=== PATIENT | male | born 1975 | race Two or more races ===

== ENCOUNTER 2020-07-07 08:15 | Outpatient (CLI) | payer OTHER | END 2020-07-07 08:20 | disposition home or self-care (01) | LOC: PPH VACUNA 08:15 | DX: Z23 Encounter for immunization (principal) ==

== ENCOUNTER 2020-12-13 11:10 | Emergency (ER) | payer OTHER ==
[~2020-12-13] VITALS: Ht 177.8 cm; Wt 77.1 kg
[2020-12-13] MEDS ORDERED: COZAAR100 MG (11:23)
[2020-12-13] MEDS ORDERED: ALDACTONE25 MG (11:23)
[2020-12-13] MEDS ORDERED: K-TAB ER8 MEQ PO (11:24)
[2020-12-13] MEDS ORDERED: DICLOFENAC POTA50 MG PO (12:40)
[2020-12-13] MEDS ORDERED: ORPHENADRINE C100 MG PO (12:40)
== END 2020-12-13 12:48 | disposition home or self-care (01) ==
LOC: ER 11:10
DX: M75.32 Calcific tendinitis of left shoulder (principal); M75.52 Bursitis of left shoulder; M54.59 Other low back pain; M25.512 Pain in left shoulder

== ENCOUNTER 2021-02-14 08:00 | Outpatient (CLI) | payer OTHER ==
[~2021-02-14 08:00] MED LIST: ALDACTONE25 MG; COZAAR100 MG; DICLOFENAC POTA50 MG PO; K-TAB ER8 MEQ PO; ORPHENADRINE C100 MG PO
== END 2021-02-14 08:30 | disposition home or self-care (01) ==
LOC: PPH VACUNA 08:00
PROVIDERS: ATTEND Emergency Medicine Pediatric Emergency Medicine
DX: Z23 Encounter for immunization (principal)

== ENCOUNTER 2021-09-02 12:23 | Inpatient (IN) | payer OTHER ==
[~2021-09-02] VITALS: Ht 177.8 cm; Wt 77.1 kg
--- NOTE | 2021-09-02 12:31 | NUR ---
SE RECIBE PACIENTE ALERTA, ORIENTADO X 3 ESFERAS REFIERE TENER DOLOR ABDOMINAL LADO MARCO A DESDE MARLEN, PRESENTAR VOMITOS, SE ESTIMAN S/V SE UBICA EN AREA DE OBSERVACION.
--- NOTE | 2021-09-02 13:08 | NUR ---
PTE EVALUADO POR EL DR MOORE QUIEN ORDENA EL [place]. MS C TORRE ORIENTA SOBRE EL TX ORDENADO, LO CUAL REFIERE ENTENDER Y REALIZA PRUEBAS DE LABORATORIO. SE ADMINISTRAN MEDICAMENTOS DARRELL ORDEN MEDICA Y SIGUIENDO MEDIDAS ASEPTICAS.
== END 2021-09-06 19:37 | disposition home or self-care (01) | DRG 446 ==
LOC: ER 12:23 → MEDI 09-03 02:56
PROVIDERS: ADMIT Internal Medicine; ATTEND Internal Medicine
PROC: 4A12X4Z Monitoring of Cardiac Electrical Activity, External Approach (ICD-10-PCS; principal; 2021-09-03)
DX: K80.00 Calculus of gallbladder with acute cholecystitis without obstruction (principal); E87.6 Hypokalemia; K70.31 Alcoholic cirrhosis of liver with ascites; F10.20 Alcohol dependence, uncomplicated; I10 Essential (primary) hypertension; Z72.0 Tobacco use; Z20.822 Contact with and (suspected) exposure to COVID-19

== ENCOUNTER 2023-09-10 05:45 | Emergency (ER) | payer OTHER ==
[~2023-09-10] VITALS: Ht 177.8 cm; Wt 69.4 kg
[~2023-09-10 05:45] MED LIST changes: +CIPRO500 MG PO; +LEVSIN/SL0.125 MG SL; +PEPCID40 MG PO; +POTASSIUM99 M3 PO
[2023-09-10] MEDS ORDERED: LOSARTAN POTAS100 MG (05:54)
[2023-09-10] MEDS ORDERED: RINGERS SOLUTION,LACTATED 1,000 ML IV STA (06:13)
[2023-09-10] MEDS ORDERED: HYOSCYAMINE SULFATE 0.125 MG TAB.SUBL SL STA (06:15)
[2023-09-10] MEDS ORDERED: THIAMINE HCL 100 MG/ML 2 ML VIAL IM STA (06:16)
[2023-09-10] MEDS ORDERED: PROMETHAZINE HCL 50 MG/ML AMPUL IM STA (06:16)
[2023-09-10] MEDS ORDERED: FAMOtidine 10 MG/ML (4ML VIAL) IV PUSH STA (06:17)
[2023-09-10] MEDS ORDERED: ONDANSETRON HCL 2 MG/ML VIAL IV STA (06:17)
[2023-09-10] MEDS ORDERED: LABETALOL HCL 100 MG/20 ML ML IV PUSH STA (06:18)
[2023-09-10 06:41] LABS: HEMATOCRIT 42.6 % (39.0-48.0); HEMOGLOBIN 14.8 g/dL (13-16.00); MEAN CELL VOLUME 100.2 fL (80.0-100.00); MEAN CORPUSCULAR HEMOGLOBIN 34.8 pg (27.00-32.0); MEAN CORPUSCULAR HGB CONC 34.7 g/dl (32.0-36.0); PLATELET COUNT 312 K/uL (150-450); RED BLOOD COUNT 4.25 M/uL (4.00-6.00); RED CELL DISTRIBUTION WIDTH 13.9 % (11.5-14.5)
[2023-09-10 06:52] LABS: PH,URINE 6.5 (5.0-8.0); URINE APPEARANCE Clear; URINE BILIRRUBIN Negative (NEGATIVE); URINE BLOOD Negative; URINE COLOR Dark Yellow; URINE GLUCOSE Negative (NEGATIVE); URINE LEUKOCYTE Negative; URINE NITRATE Negative; URINE RBC 3.2 uL (0.0-20.8); URINE WBC 5.8 uL (0.0-23.2)
[2023-09-10 07:08] LABS: URINE PROTEIN 100 (NEGATIVE)
[2023-09-10 07:21] LABS: ALBUMIN 3.8 gm/dL (3.4-5.0); BILIRUBIN TOTAL 0.82 mg/dL (0.3-1.2); CALCIUM 9.7 mg/dL (8.5-10.1); CREATININE SERUM 0.84 mg/dL (0.70-1.30); GFR 97.12; GLOBULINA 3.8 G/DL (2.4-3.5); POTASSIUM 3.3 mEq/L (3.5-5.1); TOTAL PROTEIN 7.6 gm/dL (6.4-8.2)
== END 2023-09-10 14:49 | disposition home or self-care (01) ==
LOC: ER 05:46
DX: R10.11 Right upper quadrant pain (principal); K80.20 Calculus of gallbladder without cholecystitis without obstruction; K76.0 Fatty (change of) liver, not elsewhere classified; I10 Essential (primary) hypertension; F10.21 Alcohol dependence, in remission; Z20.822 Contact with and (suspected) exposure to COVID-19

== ENCOUNTER 2024-08-05 08:33 | Emergency (ER) | payer OTHER ==
[~2024-08-05] VITALS: Ht 177.8 cm; Wt 70.3 kg
[~2024-08-05 08:33] MED LIST changes: +LOSARTAN POTAS100 MG
[2024-08-05] MEDS ORDERED: THIAMINE HCL 100 MG/ML 2 ML VIAL IM STA (09:15)
[2024-08-05] MEDS ORDERED: 0.9 % SODIUM CHLORIDE 1,000 ML IV STA (09:15)
[2024-08-05] MEDS ORDERED: PROMETHAZINE HCL 50 MG/ML AMPUL IM STA (09:16)
[2024-08-05] MEDS ORDERED: FAMOtidine 10 MG/ML (4ML VIAL) IV PUSH STA (09:17)
[2024-08-05] MEDS ORDERED: KETOROLAC TROMETHAMINE 30 MG VIAL IV STA (09:18)
[2024-08-05] MEDS ORDERED: KETOROLAC TROMETHAMINE 30 MG VIAL ONE (09:31)
[2024-08-05] MEDS ORDERED: THIAMINE HCL 100 MG/ML 2 ML VIAL ONE (09:31)
[2024-08-05] MEDS ORDERED: FAMOTIDINE/PF 20 MG/2 ML VIAL ONE (09:32)
[2024-08-05] MEDS ORDERED: PROMETHAZINE HCL 50 MG/ML AMPUL IM ONE (09:32)
[2024-08-05 09:43] LABS: BASO % 0.7 % (0.1-1.2); HEMATOCRIT 41.4 % (40.1-51.0); HEMOGLOBIN 14.3 g/dL (13.7-17.5); LYMPH # 1.22 (1.18-3.74); LYMPH % 20.3 % (19.3-53.1); MEAN CORPUSCULAR HEMOGLOBIN 33.1 pg (25.6-32.2); MONO # 0.68 (0.24-0.82); MONO % 11.3 % (4.7-12.5); NEUT # 4.04 (1.56-6.13); NEUT % 67.4 % (34.0-71.1); PLATELET COUNT 141 K/uL (163-369); RED BLOOD COUNT 4.32 M/uL (4.63-6.08); RED CELL DISTRIBUTION WIDTH 12.5 % (11.6-14.4)
[2024-08-05 10:03] LABS: INR 1.02; PARTIAL THROMBOPLASTIN TIME 27.2 SECONDS (22.0-34.0); PROTHROMBIN TIME 11.1 SECONDS (9.0-11.5)
[2024-08-05 10:56] LABS: COVID-19 AG NEGATIVE (NEGATIVE)
[2024-08-05 10:57] LABS: INFLUENZA A AG NEGATIVE (NEGATIVE); INFLUENZA B AG NEGATIVE (NEGATIVE)
[2024-08-05 12:15] LABS: ALBUMIN 3.8 gm/dL (3.4-5.0); BILIRUBIN TOTAL 1.33 mg/dL (0.3-1.2); CALCIUM 9.7 mg/dL (8.5-10.1); CREATININE SERUM 0.97 mg/dL (0.70-1.30); GFR 81.92; GLOBULINA 3.4 G/DL (2.4-3.5); TOTAL PROTEIN 7.2 gm/dL (6.4-8.2)
[2024-08-05] MEDS ORDERED: KETOROLAC TROMETHAMINE 60 MG VIAL IM ONE (14:55)
[2024-08-05] MEDS ORDERED: ACETAMINOPHEN 500 MG GEL..CAP PO ONE (14:55)
== END 2024-08-05 15:50 | disposition home or self-care (01) ==
LOC: ER 08:36
DX: K29.70 Gastritis, unspecified, without bleeding (principal); R11.10 Vomiting, unspecified; F10.20 Alcohol dependence, uncomplicated; R10.9 Unspecified abdominal pain; Z20.822 Contact with and (suspected) exposure to COVID-19; I10 Essential (primary) hypertension

== ENCOUNTER 2024-09-15 14:17 | Inpatient (IN) | payer OTHER ==
[~2024-09-15] VITALS: Ht 152.4 cm; Wt 75.7 kg
--- NOTE | 2024-09-15 14:28 | NUR ---
PACIENTE MASCULINO, S.V EN PARAMETROS, SE UBICA EN OBSERVACION ESPERA SER EVALUADO POR MD
[2024-09-15] MEDS ORDERED: ONDANSETRON HCL 2 MG/ML VIAL IV ONE ×2 (14:45→22:00)
[2024-09-15] MEDS ORDERED: BENZONATATE 200 MG CAPSULE PO ONE (14:45)
[2024-09-15] MEDS ORDERED: FAMOtidine 10 MG/ML (4ML VIAL) IV ONE (14:45)
[2024-09-15] MEDS ORDERED: 0.9 % SODIUM CHLORIDE 1,000 ML IV ONE (15:15)
--- NOTE | 2024-09-15 15:16 | NUR ---
SE ORIENTA A PACIENTE SOBRE ORDEN MEDICA EL MISMO REFIRE ENTENDER Y ACEPTA.
[2024-09-15 15:21] LABS: BASO % 0.5 % (0.1-1.2); EOS # 0.02 (0.04-0.54); EOS % 0.3 % (0.7-7.0); LYMPH # 1.44 (1.18-3.74); LYMPH % 19.1 % (19.3-53.1); MEAN PLATELET VOLUME 11.00 fl (9.4-12.4); MONO # 0.94 (0.24-0.82); NEUT # 5.05 (1.56-6.13); NEUT % 67.2 % (34.0-71.1); RED CELL DISTRIBUTION WIDTH 15.3 % (11.6-14.4)
[2024-09-15 15:23] LABS: URINE APPEARANCE Clear; URINE BILIRRUBIN Moderate (NEGATIVE); URINE BLOOD Negative; URINE COLOR Orange; URINE GLUCOSE Negative (NEGATIVE); URINE KETONE Negative (NEGATIVE); URINE LEUKOCYTE Small; URINE NITRATE Positive; URINE UROBILINOGEN 1.0 E.U./dl
[2024-09-15 15:26] LABS: URINE BACTERIA 31.1 uL (0.0-1933); URINE CAST 1.75 uL (0.0-1.40); URINE EPITHELIAL CELLS 13.6 uL (0.0-38.8); URINE RBC 17.4 uL (0.0-20.8); URINE WBC 2.3 uL (0.0-23.2)
[2024-09-15 15:27] LABS: MONO % 12.5 % (4.7-12.5)
[2024-09-15] MEDS ORDERED: PIPERACILLIN/TAZOBACTAM SODIUM 3.375 GM VIAL IV ONE (15:30)
[2024-09-15 15:40] LABS: INR 1.13
[2024-09-15 15:42] LABS: COVID-19 AG NEGATIVE (NEGATIVE)
[2024-09-15 15:54] LABS: ALT/SGPT 30.0 U/L (12-78); AST/SGOT 83.0 U/L (15-37); BILIRUBIN TOTAL 2.58 mg/dL (0.3-1.2); BUN CREA RATIO 15.0 (7.0-25.0); CREATININE SERUM 0.82 mg/dL (0.70-1.30); GFR 99.45; GLOBULINA 3.0 G/DL (2.4-3.5); GLUCOSE FASTING 89.0 mg/dL (65-100); OSMOLALITY SERUM 256.0 MOSM/KG (275-295)
[2024-09-15 15:59] LABS: URINE PROTEIN 300 (NEGATIVE)
[2024-09-15 16:25] LABS: ABG PH 7.451 (7.35-7.45); BICARBONATE 20.4 mmol/l (23-25)
[2024-09-15 18:21] LABS: o2 21 %
[2024-09-15 18:29] LABS: ABG PO2 59.8 mmHg (80-100)
[2024-09-15] MEDS ORDERED: AMIODARONE HCL 50 MG/ML AMPUL IV ONE (20:00)
--- NOTE | 2024-09-15 20:03 | NUR ---
SE RECIBE PTE EN AREA DE CRITICO #2 ALERTA Y ORIENTADO X3, SE CONECTA A MONITOR CARDIACO Y OXIMETRIA DE PULSO CONTINUA. PTE AL MOMENTO CON PULSO EN 135-160 LAT MIN. SE CONSULTA CON QUIEN INDICA COLOCAR CELY DE AMIODARONE 150MG/100MG BAJANDO EN 10MIN, Y LUEGO COLOCAR DRIP DE AMIODARONE @ 33ML/HR. SE EJECUTA ORDEN A CALVILLO TOTALIDAD.
[2024-09-15] MEDS ORDERED: FAMOTIDINE/PF 20 MG in 0.9 % SODIUM CHLORIDE 8 ML IV PUSH SCH (20:04)
[2024-09-15] MEDS ORDERED: IPRATROPIUM BROMIDE 0.5 MG/2.5 ML AMPUL.NEB IH SCH (20:08)
[2024-09-15] MEDS ORDERED: CEFTRIAXONE SODIUM 2,000 MG in 0.9 % SODIUM CHLORIDE 100 ML IV SCH (20:10)
[2024-09-15] MEDS ORDERED: POTASSIUM CHLORIDE 20MEQ/100ML H2O PB IV ONE (20:15)
[2024-09-15] MEDS ORDERED: ACETAMINOPHEN 500 MG GEL..CAP PO PRN ×2 (20:15)
[2024-09-15 21:00] VITALS: BP 126/63; O2SAT 96
[2024-09-15] MEDS ORDERED: ENOXAPARIN SODIUM 60 MG/0.6 ML SYRINGE SUBCUTANEO SCH (21:00)
[2024-09-15 22:00] VITALS: BP 109/83; O2SAT 95
[2024-09-15] MEDS ORDERED: THIAMINE HCL 100 MG/ML 2 ML VIAL IV SCH (22:05)
[2024-09-15] MEDS ORDERED: CHLORDIAZEPOXIDE HCL 25 MG CAPSULE PO SCH (22:05)
[2024-09-15] MEDS ORDERED: METOPROLOL TARTRATE 25 MG TABLET PO ONE (22:15)
[2024-09-15] MEDS ORDERED: NICOTINE 21MG/24HR PATCH.TD24 TD ONE (22:15)
[2024-09-15 23:00] VITALS: BP 92/76; O2SAT 95
[2024-09-16] VITALS (20 sets, daily range): BP systolic 85–125; BP diastolic 51–90; O2SAT 84–100
[2024-09-16 06:34] LABS: CHOL HDL RATIO 2.4 (0-5.0); HDL 121.0 mg/dl (40-60); LDL 144.0 mg/dl (0-130); VLDL 20.0 (0-39)
[2024-09-16 06:44] LABS: TSH 1.1 uIU/mL (0.358-3.74)
[2024-09-16] MEDS ORDERED: AMIODARONE HCL 450 MG in DEXTROSE 5 % IN WATER 250 ML IV SCH ×2 (07:15→13:30)
[2024-09-16] MEDS ORDERED: CARVEDILOL 6.25 MG TABLET PO SCH (10:27)
[2024-09-16] MEDS ORDERED: MAGNESIUM SULFATE IN WATER 50 ML IV ONE (11:00)
[2024-09-16] MEDS ORDERED: METOPROLOL TARTRATE 5MG/5ML AMPUL IV STA (11:29)
[2024-09-16] MEDS ORDERED: POTASSIUM CHLORIDE 10 MEQ CAPSULE PO SCH (12:00)
[2024-09-16] MEDS ORDERED: 0.9 % SODIUM CHLORIDE 500 ML IV ONE (20:15)
[2024-09-16] MEDS ORDERED: METOPROLOL SUCCINATE 50 MG TAB.SR.24H PO SCH (21:00)
[2024-09-16] MEDS ORDERED: NOREPINEPHRINE BITARTRATE 1 MG/ML AMPUL IV SCH (21:00)
[2024-09-16] MEDS ORDERED: 0.9 % SODIUM CHLORIDE 1,000 ML IV SCH (21:00)
[2024-09-16 23:49] LABS: ABG PH 7.296 (7.35-7.45); ABG PO2 253.6 mmHg (80-100); BICARBONATE 11.6 mmol/l (23-25)
[2024-09-16 23:50] LABS: o2 50 %
[2024-09-17] VITALS (22 sets, daily range): BP systolic 84–140; BP diastolic 57–103; O2SAT 82–100
[2024-09-17] MEDS ORDERED: NOREPINEPHRINE BITARTRATE 4 MG in DEXTROSE 5 % IN WATER 250 ML IV SCH (08:15)
[2024-09-17] MEDS ORDERED: NICOTINE 21MG/24HR PATCH.TD24 TD SCH (09:00)
[2024-09-17] MEDS ORDERED: LORazepam 2 MG/ML VIAL IV PUSH SCH (09:00)
[2024-09-17 09:32] LABS: BASO % 0.2 % (0.1-1.2); EOS # 0.00 (0.04-0.54); EOS % 0.0 % (0.7-7.0); LYMPH # 0.48 (1.18-3.74); LYMPH % 3.6 % (19.3-53.1); MEAN PLATELET VOLUME 11.70 fl (9.4-12.4); MONO # 1.49 (0.24-0.82); MONO % 11.2 % (4.7-12.5); NEUT # 11.23 (1.56-6.13); NEUT % 84.4 % (34.0-71.1); RED CELL DISTRIBUTION WIDTH 15.8 % (11.6-14.4)
[2024-09-17 09:42] LABS: ABG PH 7.322 (7.35-7.45); ABG PO2 130.8 mmHg (80-100); BICARBONATE 14.3 mmol/l (23-25)
[2024-09-17 10:27] LABS: ALT/SGPT 311.0 U/L (12-78); BILIRUBIN TOTAL 6.58 mg/dL (0.3-1.2); BUN CREA RATIO 11.0 (7.0-25.0); CREATININE SERUM 2.12 mg/dL (0.70-1.30); GFR 33.23; GLOBULINA 2.8 G/DL (2.4-3.5); GLUCOSE FASTING 102.0 mg/dL (65-100); OSMOLALITY SERUM 261.0 MOSM/KG (275-295)
[2024-09-17 10:29] LABS: AST/SGOT 1493.0 U/L (15-37)
[2024-09-17] MEDS ORDERED: MAGNESIUM SULFATE IN WATER 50 ML IV NR (15:00)
[2024-09-17 15:16] LABS: o2 50 %
[2024-09-17 19:43] LABS: MONONUCLEAR 78.7 %; POLYMORPHONUCLEAR 21.3 %
[2024-09-17 19:44] LABS: GLU PLEURAL FLUID 100.0 mg/dl; LDH PLEURAL FLUID 76.0 U/L; TP PLEURAL FLUID 1.4 g/dl
[2024-09-18] VITALS (21 sets, daily range): BP systolic 91–120; BP diastolic 66–103; O2SAT 89–100
[2024-09-18 07:17] LABS: BUN CREA RATIO 12.0 (7.0-25.0); CREATININE SERUM 2.94 mg/dL (0.70-1.30); GFR 22.79; GLUCOSE FASTING 73.0 mg/dL (65-100); OSMOLALITY SERUM 266.0 MOSM/KG (275-295)
[2024-09-18] MEDS ORDERED: LORazepam 2 MG/ML VIAL IV PUSH SCH (09:00)
[2024-09-18 10:41] LABS: ABG PH 7.242 (7.35-7.45); BICARBONATE 21.6 mmol/l (23-25)
[2024-09-18 10:55] LABS: ABG PO2 21.1 mmHg (80-100)
[2024-09-18 10:56] LABS: o2 35 %
[2024-09-18 12:16] LABS: ABG PO2 109.8 mmHg (80-100); BICARBONATE 18.8 mmol/l (23-25)
[2024-09-18 12:33] LABS: ABG PH 7.195 (7.35-7.45); o2 50 %
[2024-09-18] MEDS ORDERED: SODIUM BICARBONATE 150 MEQ in DEXTROSE 5 % IN WATER 1,000 ML IV SCH (13:15)
[2024-09-19] VITALS (21 sets, daily range): BP systolic 81–113; BP diastolic 65–89; O2SAT 89–100
[2024-09-19] MEDS ORDERED: ENOXAPARIN SODIUM 60 MG/0.6 ML SYRINGE SUBCUTANEO SCH (09:00)
[2024-09-19 09:21] LABS: BASO % 0.1 % (0.1-1.2); EOS # 0.01 (0.04-0.54); EOS % 0.1 % (0.7-7.0); LYMPH # 0.92 (1.18-3.74); LYMPH % 9.3 % (19.3-53.1); MEAN PLATELET VOLUME 10.60 fl (9.4-12.4); MONO # 1.42 (0.24-0.82); NEUT # 7.54 (1.56-6.13); NEUT % 75.8 % (34.0-71.1); RED CELL DISTRIBUTION WIDTH 16.2 % (11.6-14.4)
[2024-09-19 09:27] LABS: MONO % 14.3 % (4.7-12.5)
[2024-09-19 09:45] LABS: ABG PH 7.452 (7.35-7.45); ABG PO2 110.3 mmHg (80-100); BICARBONATE 22.7 mmol/l (23-25)
[2024-09-19 10:30] LABS: BUN CREA RATIO 18.0 (7.0-25.0); CREATININE SERUM 2.44 mg/dL (0.70-1.30); GFR 28.25; GLUCOSE FASTING 100.0 mg/dL (65-100); OSMOLALITY SERUM 274.0 MOSM/KG (275-295)
[2024-09-19 12:29] LABS: o2 50 %
[2024-09-19] MEDS ORDERED: PIPERACILLIN/TAZOBACTAM SODIUM 2.25 GM VIAL IV STA (16:13)
[2024-09-20] VITALS (19 sets, daily range): BP systolic 81–113; BP diastolic 65–92; O2SAT 88–99
[2024-09-20] MEDS ORDERED: PIPERACILLIN/TAZOBACTAM SODIUM 2.25 GM VIAL IV SCH
[2024-09-20 12:53] LABS: BUN CREA RATIO 24.0 (7.0-25.0); CREATININE SERUM 2.05 mg/dL (0.70-1.30); GFR 34.54; GLUCOSE FASTING 98.0 mg/dL (65-100); OSMOLALITY SERUM 283.0 MOSM/KG (275-295)
[2024-09-20] MEDS ORDERED: AMIODARONE HCL 450 MG in DEXTROSE 5 % IN WATER 250 ML IV SCH (14:15)
[2024-09-21] VITALS (17 sets, daily range): BP systolic 89–116; BP diastolic 73–93; O2SAT 94–100
[2024-09-21 06:41] LABS: BASO % 0.1 % (0.1-1.2); EOS # 0.02 (0.04-0.54); EOS % 0.2 % (0.7-7.0); LYMPH # 0.80 (1.18-3.74); LYMPH % 6.5 % (19.3-53.1); MEAN PLATELET VOLUME 10.40 fl (9.4-12.4); MONO # 2.41 (0.24-0.82); NEUT # 8.99 (1.56-6.13); NEUT % 73.1 % (34.0-71.1); RED CELL DISTRIBUTION WIDTH 17.5 % (11.6-14.4)
[2024-09-21 06:44] LABS: MONO % 19.6 % (4.7-12.5)
[2024-09-21 07:09] LABS: BUN CREA RATIO 27.0 (7.0-25.0); CREATININE SERUM 2.06 mg/dL (0.70-1.30); GFR 34.35; GLUCOSE FASTING 96.0 mg/dL (65-100); OSMOLALITY SERUM 283.0 MOSM/KG (275-295)
[2024-09-21] MEDS ORDERED: FLUCONAZOLE IN NACL,ISO-OSM 200 MG/100 ML PIGGYBAG IV SCH (09:00)
[2024-09-21] MEDS ORDERED: AMIODARONE HCL 200 MG TABLET PO NR (11:00)
[2024-09-21] MEDS ORDERED: AMIODARONE HCL 200 MG TABLET PO SCH (17:00)
[2024-09-21] MEDS ORDERED: LORazepam 2 MG/ML VIAL IV PUSH SCH (17:00)
[2024-09-21] MEDS ORDERED: NOREPINEPHRINE BITARTRATE 1 MG/ML AMPUL IV ONE (21:12)
[2024-09-21] MEDS ORDERED: NOREPINEPHRINE BITARTRATE 1 MG/ML AMPUL IV SCH (23:00)
[2024-09-22] VITALS (24 sets, daily range): BP systolic 75–119; BP diastolic 62–104; O2SAT 81–100
[2024-09-22] MEDS ORDERED: PIPERACILLIN/TAZOBACTAM SODIUM 3.375 GM VIAL IV SCH (01:00)
[2024-09-22 06:50] LABS: ABG PH 7.133 (7.35-7.45)
[2024-09-22 06:51] LABS: ABG PO2 78.7 mmHg (80-100); BICARBONATE 25.4 mmol/l (23-25)
[2024-09-22 06:52] LABS: o2 100 %
[2024-09-22] MEDS ORDERED: NOREPINEPHRINE BITARTRATE 8 MG in DEXTROSE 5 % IN WATER 250 ML IV SCH (08:00)
[2024-09-22] MEDS ORDERED: AMIODARONE HCL 900 MG in DEXTROSE 5 % IN WATER 500 ML IV SCH (08:00)
[2024-09-22] MEDS ORDERED: FLUCONAZOLE IN NACL,ISO-OSM 2 MG/ML ML IV SCH (09:00)
[2024-09-22 10:57] LABS: ABG PH 7.378 (7.35-7.45); ABG PO2 170.7 mmHg (80-100); BICARBONATE 21.8 mmol/l (23-25)
[2024-09-22 11:25] LABS: o2 100 %
[2024-09-22] MEDS ORDERED: CEFEPIME HCL 2,000 MG in 0.9 % SODIUM CHLORIDE 100 ML IV SCH (21:00)
[2024-09-23] VITALS (20 sets, daily range): BP systolic 87–143; BP diastolic 72–90; O2SAT 25–100
[2024-09-23] MEDS ORDERED: METRONIDAZOLE/SODIUM CHLORIDE 500 MG/100 ML PIGGYBACK IV SCH (01:00)
[2024-09-23 07:51] LABS: BASO % 0.2 % (0.1-1.2); EOS # 0.03 (0.04-0.54); EOS % 0.2 % (0.7-7.0); LYMPH # 1.22 (1.18-3.74); LYMPH % 9.7 % (19.3-53.1); MEAN PLATELET VOLUME 10.00 fl (9.4-12.4); MONO # 2.32 (0.24-0.82); NEUT # 8.85 (1.56-6.13); NEUT % 70.5 % (34.0-71.1); RED CELL DISTRIBUTION WIDTH 17.5 % (11.6-14.4)
[2024-09-23 08:13] LABS: MONO % 18.5 % (4.7-12.5)
[2024-09-23 08:29] LABS: ALT/SGPT 117.0 U/L (12-78); AST/SGOT 149.0 U/L (15-37); BILIRUBIN TOTAL 3.35 mg/dL (0.3-1.2); BUN CREA RATIO 30.0 (7.0-25.0); CREATININE SERUM 2.71 mg/dL (0.70-1.30); GFR 25.03; GLOBULINA 2.8 G/DL (2.4-3.5); GLUCOSE FASTING 106.0 mg/dL (65-100); OSMOLALITY SERUM 293.0 MOSM/KG (275-295)
[2024-09-23 10:38] LABS: ABG PH 7.435 (7.35-7.45)
[2024-09-23 10:39] LABS: ABG PO2 60.8 mmHg (80-100)
[2024-09-23 10:40] LABS: BICARBONATE 22.4 mmol/l (23-25)
[2024-09-23 10:42] LABS: o2 50 %
[2024-09-23 10:54] LABS: ABG PH 7.455 (7.35-7.45); ABG PO2 165.2 mmHg (80-100); BICARBONATE 22.1 mmol/l (23-25)
[2024-09-23 10:55] LABS: o2 80 %
[2024-09-24] VITALS (23 sets, daily range): BP systolic 96–107; BP diastolic 79–89; O2SAT 93–100
[2024-09-25] VITALS (19 sets, daily range): BP systolic 87–102; BP diastolic 54–88; O2SAT 86–100
[2024-09-25 08:02] LABS: ALT/SGPT 74.0 U/L (12-78); AST/SGOT 81.0 U/L (15-37); BILIRUBIN TOTAL 3.42 mg/dL (0.3-1.2); BUN CREA RATIO 42.0 (7.0-25.0); CREATININE SERUM 1.29 mg/dL (0.70-1.30); GFR 58.95; GLOBULINA 2.8 G/DL (2.4-3.5); GLUCOSE FASTING 86.0 mg/dL (65-100); OSMOLALITY SERUM 286.0 MOSM/KG (275-295)
[2024-09-25 08:05] LABS: BASO % 0.1 % (0.1-1.2); EOS # 0.04 (0.04-0.54); EOS % 0.4 % (0.7-7.0); LYMPH # 0.83 (1.18-3.74); LYMPH % 7.6 % (19.3-53.1); MEAN PLATELET VOLUME 9.90 fl (9.4-12.4); MONO # 1.25 (0.24-0.82); MONO % 11.5 % (4.7-12.5); NEUT # 8.61 (1.56-6.13); NEUT % 79.3 % (34.0-71.1); RED CELL DISTRIBUTION WIDTH 18.1 % (11.6-14.4)
[2024-09-25] MEDS ORDERED: MILRINONE LACTATE IV SCH (13:30)
[2024-09-25] MEDS ORDERED: SODIUM CHLORIDE 0.9% IV SCH (13:30)
[2024-09-26] VITALS (23 sets, daily range): BP systolic 96–108; BP diastolic 63–91; O2SAT 89–98
[2024-09-26] MEDS ORDERED: GUAIFENESIN 200 MG/10 ML BLIST.PACK PO SCH (12:00)
[2024-09-26] MEDS ORDERED: BENZONATATE 200 MG CAPSULE PO SCH (17:00)
[2024-09-26] MEDS ORDERED: IPRATROPIUM BROMIDE 0.5 MG/2.5 ML AMPUL.NEB IH SCH (17:00)
[2024-09-27] VITALS (21 sets, daily range): BP systolic 81–108; BP diastolic 55–90; O2SAT 78–100
[2024-09-27 08:04] LABS: BUN CREA RATIO 33.0 (7.0-25.0); CREATININE SERUM 1.42 mg/dL (0.70-1.30); GFR 52.77; GLUCOSE FASTING 112.0 mg/dL (65-100); OSMOLALITY SERUM 285.0 MOSM/KG (275-295)
[2024-09-27 09:21] LABS: ABG PH 7.318 (7.35-7.45); ABG PO2 58.2 mmHg (80-100); BICARBONATE 26.2 mmol/l (23-25)
[2024-09-27 09:22] LABS: o2 50 %
[2024-09-27] MEDS ORDERED: METHYLPREDNISOLONE SOD SUCC 40 MG VIAL IV SCH (13:46)
[2024-09-27] MEDS ORDERED: NOREPINEPHRINE BITARTRATE 8 MG in DEXTROSE 5 % IN WATER 250 ML IV SCH (15:30)
[2024-09-27 17:02] LABS: ABG PH 7.277 (7.35-7.45); ABG PO2 181.4 mmHg (80-100); BICARBONATE 23.6 mmol/l (23-25)
[2024-09-27 19:01] LABS: o2 100 %
[2024-09-27 19:12] LABS: ABG PH 7.203 (7.35-7.45)
[2024-09-27 19:15] LABS: BICARBONATE 26.4 mmol/l (23-25)
[2024-09-27 19:16] LABS: o2 100 %
[2024-09-27 19:17] LABS: ABG PO2 43.9 mmHg (80-100)
[2024-09-28] VITALS (23 sets, daily range): BP systolic 92–111; BP diastolic 74–98; O2SAT 98–100
[2024-09-28] MEDS ORDERED: METOLAZONE 5 MG TABLET PO ONE (07:00)
[2024-09-28 07:58] LABS: ALT/SGPT 45.0 U/L (12-78); AST/SGOT 56.0 U/L (15-37); BILIRUBIN TOTAL 2.59 mg/dL (0.3-1.2); BUN CREA RATIO 32.0 (7.0-25.0); CREATININE SERUM 1.77 mg/dL (0.70-1.30); GFR 40.92; GLOBULINA 3.1 G/DL (2.4-3.5); GLUCOSE FASTING 134.0 mg/dL (65-100); OSMOLALITY SERUM 290.0 MOSM/KG (275-295)
[2024-09-28 10:19] LABS: ABG PH 7.421 (7.35-7.45); ABG PO2 125.1 mmHg (80-100)
[2024-09-28 10:20] LABS: BICARBONATE 23.7 mmol/l (23-25); o2 50 %
[2024-09-28 13:57] LABS: BASO % 0.2 % (0.1-1.2); EOS # 0.01 (0.04-0.54); EOS % 0.0 % (0.7-7.0); LYMPH # 0.47 (1.18-3.74); LYMPH % 2.2 % (19.3-53.1); MEAN PLATELET VOLUME 10.00 fl (9.4-12.4); MONO # 0.62 (0.24-0.82); MONO % 2.9 % (4.7-12.5); NEUT # 19.90 (1.56-6.13); NEUT % 93.9 % (34.0-71.1); RED CELL DISTRIBUTION WIDTH 17.3 % (11.6-14.4)
[2024-09-28] MEDS ORDERED: FAMOTIDINE/PF 20 MG/2 ML VIAL IV SCH (18:00)
[2024-09-29] VITALS (23 sets, daily range): BP systolic 98–127; BP diastolic 82–101; O2SAT 91–100
[2024-09-29 07:51] LABS: ALT/SGPT 37.0 U/L (12-78); AST/SGOT 45.0 U/L (15-37); BILIRUBIN TOTAL 2.24 mg/dL (0.3-1.2); BUN CREA RATIO 33.0 (7.0-25.0); CREATININE SERUM 1.94 mg/dL (0.70-1.30); GFR 36.81; GLOBULINA 3.1 G/DL (2.4-3.5); GLUCOSE FASTING 112.0 mg/dL (65-100); OSMOLALITY SERUM 295.0 MOSM/KG (275-295)
[2024-09-29 10:17] LABS: ABG PH 7.485 (7.35-7.45); ABG PO2 74.5 mmHg (80-100)
[2024-09-29 10:18] LABS: BICARBONATE 20.9 mmol/l (23-25)
[2024-09-29 10:19] LABS: o2 50 %
[2024-09-30] VITALS (22 sets, daily range): BP systolic 99–120; BP diastolic 80–99; O2SAT 94–100
[2024-09-30] MEDS ORDERED: METHYLPREDNISOLONE SOD SUCC 40 MG VIAL IV SCH (09:00)
[2024-09-30] MEDS ORDERED: AMIODARONE HCL 200 MG TABLET PO SCH (21:53)
[2024-09-30] MEDS ORDERED: METOPROLOL SUCCINATE 25 MG TAB.SR.24H PO SCH (21:54)
[2024-10-01] VITALS (13 sets, daily range): BP systolic 88–113; BP diastolic 77–96; O2SAT 90–100
[2024-10-01 07:11] LABS: BASO % 0.1 % (0.1-1.2); EOS # 0.00 (0.04-0.54); EOS % 0.0 % (0.7-7.0); LYMPH # 0.26 (1.18-3.74); LYMPH % 1.7 % (19.3-53.1); MEAN PLATELET VOLUME 10.00 fl (9.4-12.4); MONO # 1.04 (0.24-0.82); MONO % 6.8 % (4.7-12.5); NEUT # 13.91 (1.56-6.13); NEUT % 90.7 % (34.0-71.1); RED CELL DISTRIBUTION WIDTH 17.2 % (11.6-14.4)
[2024-10-01] MEDS ORDERED: MIDODRINE HCL 5 MG TABLET PO SCH ×2 (09:00)
[2024-10-02] VITALS (9 sets, daily range): BP systolic 90–123; BP diastolic 75–105; O2SAT 84–98
[2024-10-02 06:45] LABS: BASO % 0.1 % (0.1-1.2); EOS # 0.00 (0.04-0.54); EOS % 0.0 % (0.7-7.0); LYMPH # 0.31 (1.18-3.74); LYMPH % 2.3 % (19.3-53.1); MEAN PLATELET VOLUME 10.20 fl (9.4-12.4); MONO # 1.04 (0.24-0.82); MONO % 7.7 % (4.7-12.5); NEUT # 12.08 (1.56-6.13); NEUT % 89.2 % (34.0-71.1); RED CELL DISTRIBUTION WIDTH 16.9 % (11.6-14.4)
[2024-10-02 07:35] LABS: ALT/SGPT 38.0 U/L (12-78); AST/SGOT 59.0 U/L (15-37); BILIRUBIN TOTAL 2.58 mg/dL (0.3-1.2); BUN CREA RATIO 33.0 (7.0-25.0); CREATININE SERUM 2.93 mg/dL (0.70-1.30); GFR 22.88; GLOBULINA 3.4 G/DL (2.4-3.5); GLUCOSE FASTING 114.0 mg/dL (65-100); OSMOLALITY SERUM 300.0 MOSM/KG (275-295)
[2024-10-02] MEDS ORDERED: MIDODRINE HCL 5 MG TABLET PO SCH (09:00)
[2024-10-02 11:37] LABS: ABG PH 7.363 (7.35-7.45); ABG PO2 119.0 mmHg (80-100); BICARBONATE 13.5 mmol/l (23-25)
[2024-10-02 11:58] LABS: o2 30 %
[2024-10-02 13:49] LABS: COVID-19 AG NEGATIVE (NEGATIVE)
[2024-10-02] MEDS ORDERED: CLOTRIMAZOLE 10 MG TROCHE MM SCH (17:09)
== END 2024-10-02 22:00 | disposition expired | DRG 291 ==
LOC: ER 14:17 → ICU 20:34 → ICU-2 20:34 → ICU 09-16 11:13
PROVIDERS: General Practice; Internal Medicine; Internal Medicine Critical Care Medicine; Internal Medicine Infectious Disease; Internal Medicine Nephrology; Radiology Vascular & Interventional Radiology; Student in an Organized Health Care Education/Training Program; ADMIT Internal Medicine; ATTEND Internal Medicine
PROC: BW21ZZZ Computerized Tomography (CT Scan) of Abdomen and Pelvis (ICD-10-PCS; 2024-09-15)
PROC: BW24ZZZ Computerized Tomography (CT Scan) of Chest and Abdomen (ICD-10-PCS; 2024-09-15)
PROC: B24BZZZ Ultrasonography of Heart with Aorta (ICD-10-PCS; 2024-09-15)
PROC: 0W993ZX Drainage of Right Pleural Cavity, Percutaneous Approach, Diagnostic (ICD-10-PCS; principal; 2024-09-17)
PROC: 0W9B3ZZ Drainage of Left Pleural Cavity, Percutaneous Approach (ICD-10-PCS; 2024-09-18)
PROC: 02HV33Z Insertion of Infusion Device into Superior Vena Cava, Percutaneous Approach (ICD-10-PCS; 2024-09-18)
PROC: 0W993ZZ Drainage of Right Pleural Cavity, Percutaneous Approach (ICD-10-PCS; 2024-09-23)
PROC: BW24ZZZ Computerized Tomography (CT Scan) of Chest and Abdomen (ICD-10-PCS; 2024-09-23)
PROC: B54NZZZ Ultrasonography of Left Upper Extremity Veins (ICD-10-PCS; 2024-09-30)
DX: I11.0 Hypertensive heart disease with heart failure (principal); J18.9 Pneumonia, unspecified organism; J96.01 Acute respiratory failure with hypoxia; R65.21 Severe sepsis with septic shock; J69.0 Pneumonitis due to inhalation of food and vomit; I48.20 Chronic atrial fibrillation, unspecified; N39.0 Urinary tract infection, site not specified; N17.9 Acute kidney failure, unspecified; F10.231 Alcohol dependence with withdrawal delirium; J44.1 Chronic obstructive pulmonary disease with (acute) exacerbation; I50.20 Unspecified systolic (congestive) heart failure; I95.9 Hypotension, unspecified; R57.0 Cardiogenic shock; I42.6 Alcoholic cardiomyopathy; I50.84 End stage heart failure; K70.30 Alcoholic cirrhosis of liver without ascites; I50.82 Biventricular heart failure; E87.6 Hypokalemia; E66.9 Obesity, unspecified; Z72.0 Tobacco use; R41.82 Altered mental status, unspecified